=== PATIENT | female | born 1965 | race Caucasian/White ===

== ENCOUNTER 2017-07-11 15:34 | Outpatient (CLI) | payer OTHER ==
[~2017-07-11] VITALS: Ht 152.4 cm; Wt 59.5 kg
[2017-07-11 15:48] VITALS: Ht 152.4 cm; Wt 59.5 kg
[2017-07-11] MEDS ORDERED: SULF1TAB31 PO (15:48)
[2017-07-11 15:49] VITALS: BP 108/61; PULSE 80; RESP 16
--- NOTE | 2017-07-11 16:10 | PN ---
Date/Time of Note Date/Time of Note DATE: 07/11/17 TIME: 16:08 Outpatient Progress Note Chief Complaint Pyelonephritis/uterine fibroma HPI Pyelonephritis/patient was recently hospitalized with a pyelonephritis, acute onset, few days duration, associated with the discomfort and dysuria, patient's discomfort relieved with antibiotic, patient still on antibiotic, no fever chill , no blood in the urine, no back pain, Uterine fibroma/patient is uterine fibroma, patient has off and on discomfort, no bleeding, patient was followed by wire drawer, Review of Systems Const: No Fever, no chills, no Wt. loss, no Fatigue, normal appetite, no diaphoresis. Eyes: No pain, no discharge, no redness, no visual change, no foreign body. ENT: No pain, no bleeding, no congestion, no sore throat, no dysphagia, no discharge or rhinitis. Lymph: No adenopathy, no tender nodes, no lymphedema. Resp: No SOB, no cough, no sputum, no wheezing, no chest pain. CV: No chest pain, no palpitaions, no HENNESSY, no PND, no edema. GI: Normal appetite, no pain, no nausea, no vomiting, no diarrhea, no blood, no constipation. : No frequency, no urgency, no dysuria, no hematuria, no flank pain, no discharge, no bleeding. Musc: No bone/joint pain, no back pain, no neck pain, no knee pain, no restricted ROM. Skin: No rash, no skin lesions, no erythema, no laceration, no bruising, no pruritus. Neuro: No REEDER, no dizziness, no syncope, no seizure, no focal-weakness. Endo: No polyuria, no polydypsia, no dry-skin, no temp-intolerance. Psych: No hallucinations, no depression, no anxiety, no suicidal ideation. Ext: No edema, no pain, no ulcer, no weakness. Physical Exam Vital Signs Date Time Temp Pulse Resp B/P Pulse Ox O2 Delivery O2 Flow Rate FiO2 07/11/17 15:49 98.1 80 16 108/61 99 Room Air General Appearance: A 52 year-old female who appears well-developed, well- nourished, in no acute distress. HEENT: Head normocephalic, atraumatic. Pupils equal, round, reactive to light and accommodate. Sclerae are no jaundice. Nasal turbinates pink without erythema or nasal discharge. Mucous membranes pink and moist without lesions. Oropharynx clear without any exudate or discharge. NECK: Supple. Trachea midline, No thyromegaly, No cervical lymphadenopathy, No mass, No carotid bruits, No JVD, Carotid pulses 2+ bilaterally. PULMONARY: Clear to auscultaion bilaterally, No retractions, Chest expansion symmetric bilaterally, no rales, no ronchi, no dulness on percussion. CARDIAC: Normal SI and S2, Regular rate and rythm, no murmur, gallop, or rub. GASTROINTESTINAL: Abdomen is soft, non-tender, Non Rigid, No distention, Positive bowel sounds x4 quadrants, Liver normal. SKIN: Warm, dry, no rash, no bruise, no echmosis. EXTREMITIES: Bilateral lower extremities normal, no edema, no phlabitus, pulse palpable, no contracture. MUSCULOSKELETAL: Spine Normal, Non-tender, Normal range of motion, No swelling, no deformity, no clubbing, or cyanosis, the patient has no edema to bilateral lower extremities, dorsalis pedis pulses palpable bilaterally. NEUROLOGIC: The patient is awake, alert, oriented, responding to yes/no questions appropriately, moving all extremities, cranial nerve intact, normal strenght, normal power, normal coordination, normal gait. Allergies Coded Allergies: No Known Drug Allergies (Verified Allergy, Unknown, 07/11/17) PMH Pyelonephritis/hyponatremia/uterine fibroma Social Hx No smoking no drinking, Family Hx Noncontributory, Assessment/Plan Impression Pyelonephritis/UTI/uterine fibroma, Plan Patient education done about her condition, Patient still on Bactrim, will continue and finish it, Patient encouraged to follow with the primary care physician, if any fever or hematuria back pain to notify MD, Patient has all the medication, Medications Home Meds Reported Medications Sulfamethoxazole/Trimethoprim* (Bactrim Ds* Tablet) 1 Each Tablet, 1 TAB PO BID for 14 Days, TAB 07/11/17 CAROLE BYRNE MD Jul 11, 2017 16:10
== END 2017-07-11 16:42 | disposition home or self-care (01) ==
LOC: DCC 15:34
PROVIDERS: ATTEND Internal Medicine
DX: N12 Tubulo-interstitial nephritis, not specified as acute or chronic (principal); D26.9 Other benign neoplasm of uterus, unspecified
CPT/HCPCS: G0463